=== PATIENT | male | born 1980 | race American Indian/Alaskan Native ===

== ENCOUNTER 2024-07-29 11:35 | Emergency (ER) | payer OTHER ==
[~2024-07-29] VITALS: Ht 190.5 cm; Wt 120.2 kg
[2024-07-29] MEDS ORDERED: COZAAR25 MG (12:04)
[2024-07-29 14:28] LABS: HEMATOCRIT 42.5 % (39.0-48.0); HEMOGLOBIN 15.1 g/dL (13-16.00); MEAN CELL VOLUME 94.4 fL (80.0-100.00); MEAN CORPUSCULAR HEMOGLOBIN 33.6 pg (27.00-32.0); MEAN CORPUSCULAR HGB CONC 35.6 g/dl (32.0-36.0); PLATELET COUNT 181 K/uL (150-450); RED BLOOD COUNT 4.51 M/uL (4.00-6.00); RED CELL DISTRIBUTION WIDTH 12.6 % (11.5-14.5)
[2024-07-29] MEDS ORDERED: GUAIFENESIN 200 MG/10 ML BLIST.PACK PO ONE (16:15)
[2024-07-29] MEDS ORDERED: BENZONATATE 100 MG CAPSULE PO ONE (16:15)
[2024-07-29] MEDS ORDERED: DEXAMETHASONE SODIUM PHOSPHATE 4 MG/ML VIAL IM ONE (16:15)
== END 2024-07-29 16:57 | disposition home or self-care (01) ==
LOC: ER 11:37
PROVIDERS: General Practice
DX: J06.9 Acute upper respiratory infection, unspecified (principal); Z20.822 Contact with and (suspected) exposure to COVID-19; Z88.0 Allergy status to penicillin; Z88.8 Allergy status to other drugs, medicaments and biological substances